=== PATIENT | female | born 1975 | race Caucasian/White ===

== ENCOUNTER 2022-06-30 06:12 | Day surgery (SDC) | payer OTHER ==
[~2022-06-30] VITALS: Ht 167.6 cm; Wt 118.8 kg
[~2022-06-30 06:12] MED LIST: ALEVE PM CAPLE1 EACH PO; PROAIR RESPICL90 MCG; ZYRTEC10 M3 PO
== END 2022-06-30 14:20 | disposition home or self-care (01) ==
LOC: CIR.AMB 06:12
PROVIDERS: ATTEND Specialist
DX: D17.23 Benign lipomatous neoplasm of skin and subcutaneous tissue of right leg (principal); Z20.822 Contact with and (suspected) exposure to COVID-19; Z88.0 Allergy status to penicillin; E66.9 Obesity, unspecified